=== PATIENT | female | born 1990 | race Caucasian/White ===

== ENCOUNTER 2016-04-24 21:30 | Emergency (ER) | payer MEDICAID, OTHER ==
[~2016-04-24] VITALS: Ht 162.6 cm; Wt 51.0 kg
[~2016-04-24 21:30] MED LIST: DOXY100T PO; TRAM50 PO
[2016-04-24 21:34] VITALS: BP 121/61; PULSE 108; RESP 14; TEMP 98; O2SAT 99
[2016-05-14] MEDS ORDERED: FLUO10CA5 PO (15:29)
[2016-05-14] MEDS ORDERED: SPRI28TA PO (15:29)
[2016-06-09] MEDS ORDERED: ALBU.5I NEB ×2 (10:58→11:29)
[2016-07-21] MEDS ORDERED: CORT1SOL RIGHT EAR (15:53)
== END 2016-04-24 22:40 | disposition left against medical advice (07) ==
LOC: NED 21:30
DX: N94.9 Unspecified condition associated with female genital organs and menstrual cycle (principal)
CPT/HCPCS: 99281

== ENCOUNTER 2016-04-24 22:43 | Emergency (ER) | payer MEDICAID, OTHER ==
[~2016-04-24] VITALS: Ht 162.6 cm; Wt 50.6 kg
[2016-04-24 22:52] VITALS: BP 111/78; PULSE 99; RESP 18; TEMP 99.1; O2SAT 100
--- NOTE | 2016-04-24 23:08 | PD ---
HPI Chief Complaint: Bleeding Time Seen by Provider: 23:06 Travel History International Travel<30 days: No Contact w/Intl Traveler<30days: No Traveled to known affect area: No History of Present Illness HPI This 25-year-old female is complaining of vaginal bleeding. She says that she is started having some heavy bleeding yesterday. She hasn't had a period 2 weeks ago she felt was normal. She had an IUD removed February 26. She does not think she is . The bleeding seemed to slow down earlier today and then tonight she started having heavy bleeding again. She says she felt weak earlier. She had had an IUD in place which she removed herself in February. She states that he was atraumatic [facility] Past Medical History Anxiety: Yes Diminished Hearing: No Immunizations Current: Yes ?: Not LMP: 2 WEEKS AGO, STATES THIS IS NOT HER NORMAL PERIOD : 0 Social History Alcohol Use: Yes (one drink every other month) Tobacco Use: Yes (/ PPD) Substance Use: No Allergies-Medications (Allergen,Severity, Reaction): Coded Allergies: No Known Allergies (Unverified , 04/24/16) Reported Meds & Prescriptions Reported Meds & Active Scripts Active No Active Prescriptions or Reported Medications Review of Systems General / Constitutional: No: Fever, Chills Eyes: No: Diploplia HENT: No: Headaches Cardiovascular: No: Chest Pain or Discomfort, Palpitations Gastrointestinal: No: Nausea Genitourinary: Positive: Vaginal Bleeding Musculoskeletal: No: Myalgias, Arthralgias Physical Exam Narrative GENERAL: Well-developed female SKIN: Warm and dry. HEAD: Atraumatic. Normocephalic. EYES: Pupils equal and round. No scleral icterus. No injection or drainage. ENT: No nasal bleeding or discharge. Mucous membranes pink and moist. NECK: Trachea midline. No JVD. GASTROINTESTINAL: Abdomen soft, non-tender, nondistended. Hepatic and splenic margins not palpable. Pelvic: Cervical os is closed. There is minimal bleeding at this time. Uterus is not palpably enlarged. No adnexal masses MUSCULOSKELETAL: No obvious deformities. No clubbing. No cyanosis. No edema. NEUROLOGICAL: Awake and alert. No obvious cranial nerve deficits. Motor grossly within normal limits. Normal speech. PSYCHIATRIC: Appropriate mood and affect; insight and judgment normal. Data Data Last Documented VS Vital Signs Date Time Temp Pulse Resp B/P Pulse Ox O2 Delivery O2 Flow Rate FiO2 04/24/16 22:52 99.1 99 18 111/78 100 Orders Complete Blood Count With Diff (04/24/16 23:08) Basic Metabolic Panel (Bmp) (04/24/16 23:08) Ed Urine Pregnancytest Poc (04/24/16 23:08) MDM Medical Decision Making Medical Screen Exam Complete: Yes Emergency Medical Condition: Yes Medical Record Reviewed: Yes Differential Diagnosis Differential includes dysfunctional bleeding, , Narrative Course test is negative. Patient is not having heavy bleeding at this time is stable for discharge. She has an upcoming appointment with her top closer Diagnosis Primary Impression: Dysfunctional uterine bleeding Additional Instructions: Follow-up with your top closer Scripts No Active Prescriptions or Reported Meds Disposition: 01 DISCHARGE HOME Condition: Stable Priyank Pereyra MD Apr 24, 2016 23:08
[2016-04-24 23:57] LABS: AUTOMATED NEUTROPHIL # 3.9 TH/MM3 (1.8-7.7); BASOPHIL % 0.6 % (0.0-2.0); EOSINOPHIL # 0.1 TH/MM3 (0-0.4); EOSINOPHIL % 1.4 % (0.0-4.0); HEMATOCRIT 39.2 % (35.0-46.0); HEMO FLAGS DIFF FINAL; LYMPH % 40.8 % (9.0-44.0); LYMPHOCYTE # 3.3 TH/MM3 (1.0-4.8); MEAN CELL VOLUME 87.6 FL (80.0-100.0); MEAN CORPUSCULAR HEMOGLOBIN 29.5 PG (27.0-34.0); MEAN CORPUSCULAR HGB CONC 33.7 % (32.0-36.0); MONO % 8.4 % (0.0-8.0); NEUT % 48.8 % (16.0-70.0); PLATELET COUNT 246 TH/MM3 (150-450); RED BLOOD COUNT 4.47 MIL/MM3 (4.00-5.30); RED CELL DISTRIBUTION WIDTH 12.7 % (11.6-17.2)
[2016-04-25] VITALS: BP 104/64; PULSE 88; RESP 16; O2SAT 99
[2016-04-25 00:03] LABS: POTASSIUM 3.8 MEQ/L (3.5-5.1)
[2016-04-25 00:06] LABS: BICARBONATE 28.6 MEQ/L (21.0-32.0)
[2016-05-14] MEDS ORDERED: FLUO10CA5 PO (15:29)
[2016-05-14] MEDS ORDERED: SPRI28TA PO (15:29)
[2016-06-09] MEDS ORDERED: ALBU.5I NEB ×2 (10:58→11:29)
[2016-07-21] MEDS ORDERED: CORT1SOL RIGHT EAR (15:53)
== END 2016-04-25 00:12 | disposition home or self-care (01) ==
LOC: PHED 22:43
DX: N93.8 Other specified abnormal uterine and vaginal bleeding (principal); F17.210 Nicotine dependence, cigarettes, uncomplicated
CPT/HCPCS: 80048; 84703; 85025; 99284

== ENCOUNTER 2016-06-18 00:47 | Emergency (ER) | payer OTHER ==
[~2016-06-18] VITALS: Ht 162.6 cm; Wt 53.8 kg
[~2016-06-18 00:47] MED LIST changes: +ALBU.5I NEB; -DOXY100T PO; +FLUO10CA5 PO; +SPRI28TA PO; -TRAM50 PO
[2016-06-18 00:55] VITALS: BP 123/91; PULSE 94; RESP 16; TEMP 98.5; O2SAT 97
--- NOTE | 2016-06-18 02:10 | PD ---
HPI Chief Complaint: Oral / Dental Pain or Problem Time Seen by Provider: 01:53 Travel History International Travel<30 days: No Contact w/Intl Traveler<30days: No Traveled to known affect area: No History of Present Illness HPI The patient is a 25-year-old female that complains of dental pain in tooth #3. She states she has been on 2 courses of amoxicillin and it is not working and she came in to get a different antibiotic. She has already seen a dentist and has an appointment for follow-up. She states that her last menstrual period was May 14 and she might be . She denies any fever. She says she can feel some facial swelling on her right face. She had her IUD removed in February and she is not on any contraception currently. [facility] Past Medical History Anxiety: Yes Diminished Hearing: No Reproductive: Yes (PID FROM IUD) Immunizations Current: Yes : 1 Para: 1 Miscarriage: 0 : 0 Social History Alcohol Use: Yes (one drink every other month) Tobacco Use: Yes (1/2 PPD) Substance Use: No Allergies-Medications (Allergen,Severity, Reaction): Coded Allergies: No Known Allergies (Unverified , 06/18/16) Reported Meds & Prescriptions Reported Meds & Active Scripts Active Ibuprofen 600 Mg Tab 600 Mg PO TID Cleocin (Clindamycin HCl) 300 Mg Cap 300 Mg PO Q6H 10 Days Albuterol Neb (Albuterol Sulfate) 2.5 Mg/0.5 Ml Neb 2.5 Mg NEB Q6HR NEB PRN Note: The Albuterol Sulfate Inhalation Solution is concentrated and must be diluted. Read complete instructions carefully before using. Review of Systems Except as stated in HPI: all other systems reviewed are Neg Physical Exam Narrative GENERAL: Well-nourished, well-developed patient in moderate apparent distress with her dental pain. Her vital signs show blood pressure 123/91 but are otherwise normal. SKIN: Warm and dry. HEAD: Normocephalic. EYES: No scleral icterus. No injection or drainage. NECK: Supple, trachea midline. No JVD or lymphadenopathy. CARDIOVASCULAR: Regular rate and rhythm without murmurs, gallops, or rubs. RESPIRATORY: Breath sounds equal bilaterally. No accessory muscle use. GASTROINTESTINAL: Abdomen soft, non-tender, nondistended. MUSCULOSKELETAL: No cyanosis, or edema. BACK: Nontender without obvious deformity. No CVA tenderness. DENTAL: No loose or chipped teeth. No malocclusion. Tooth #3 has a hole in it and there is no associated drainable abscess with this tooth. It is exquisitely tender to the touch however. Data Data Last Documented VS Vital Signs Date Time Temp Pulse Resp B/P Pulse Ox O2 Delivery O2 Flow Rate FiO2 06/18/16 02:49 79 18 110/73 100 Room Air 06/18/16 00:55 98.5 Orders Clindamycin (Cleocin) (06/18/16 02:15) Beta Hcg (Quant/Titer) (06/18/16 02:12) Labs Laboratory Tests Test 06/18/16 02:30 Human Chorionic Gonadotropin, 2 MIU/ML Quant MDM Medical Decision Making Medical Screen Exam Complete: Yes Emergency Medical Condition: Yes Medical Record Reviewed: Yes Interpretation(s) The beta-hCG is 2. Differential Diagnosis Dental infection, drainable abscess, Narrative Course The patient has a dental infection without any drainable abscess. She has been on 2 courses of amoxicillin and wants to change the medicine because she thinks it is not working anymore. Plan: The patient be given Cleocin 600 mg 4 times a day for 10 days and follow- up with her dentist. Diagnosis Primary Impression: Dental infection Additional Instructions: As we discussed, take both Motrin and Tylenol together for the pain. The Cleocin is one tablet 4 times daily for 10 days. Follow-up with your dentist as soon as possible. Med/Other Pt SpecificInfo: Prescription(s) given Scripts Ibuprofen 600 Mg [id number] Mg PO TID #45 TAB Ref 0 Prov:Justin Samano MD 06/18/16 Clindamycin (Cleocin)300 Mg [id number] Mg PO Q6H 10 Days Ref 0 Prov:Justin Samano MD 06/18/16 Disposition: 01 DISCHARGE HOME Condition: Stable Justin Samano MD Jun 18, 2016 02:10
[2016-06-18] MEDS ORDERED: CLINDAMYCIN 150 MG CAP PO ONE (02:15)
[2016-06-18 02:49] VITALS: BP 110/73; PULSE 79; RESP 18; O2SAT 100
[2016-06-18 02:57] LABS: BETA HCG QUANT 2 MIU/ML (0-5)
[2016-06-18] MEDS ORDERED: CLEO300C2 PO (03:23)
[2016-06-18] MEDS ORDERED: IBUP-232 PO (03:25)
[2016-06-18 03:48] VITALS: BP 103/65
[2016-07-21] MEDS ORDERED: CORT1SOL RIGHT EAR (15:53)
== END 2016-06-18 03:57 | disposition home or self-care (01) ==
LOC: PHED 00:47
DX: K04.7 Periapical abscess without sinus (principal); F17.200 Nicotine dependence, unspecified, uncomplicated; Z86.59 Personal history of other mental and behavioral disorders; Z87.42 Personal history of other diseases of the female genital tract
CPT/HCPCS: 84702; 99283

== ENCOUNTER 2016-10-05 02:21 | Emergency (ER) | payer OTHER ==
[~2016-10-05] VITALS: Ht 162.6 cm; Wt 60.0 kg
[~2016-10-05 02:21] MED LIST changes: +CORT1SOL RIGHT EAR; -FLUO10CA5 PO; +IBUP-232 PO; -SPRI28TA PO
[2016-10-05 02:25] VITALS: BP 144/71; PULSE 120; RESP 20; TEMP 98.5; O2SAT 98
--- NOTE | 2016-10-05 03:57 | PD ---
HPI Chief Complaint: Oral / Dental Pain or Problem Time Seen by Provider: 03:51 Travel History International Travel<30 days: No Contact w/Intl Traveler<30days: No Traveled to known affect area: No History of Present Illness HPI The patient is a 26 year old female who presents to the [facility] emergency department with a history of dental pain that recurred on and is gradually worsened with time. It became severe this evening on awoke her from sound sleep.She is postop day 7 after a left mandibular molar extraction. She reports that initially the pain was significant postop, however it gradually improved until Wednesday. She is not any antibiotic. She last took at 2 AM 3 Lortab 5mg, 2- 200mg Ibuprofen and then prior to that at 9 PM she took Tylenol 1 gr and 2- 200mg Ibuprofen. The patient incidentally also reports that over the last 2 weeks she has had difficult urinating. She denies having any dysuria. She reports that she has difficulty starting her stream of urine, and her stream seems weaker. The patient reports that the pain is 10 out of 10 in severity and involves the left jaw, radiating into the left ear and left cheek. She reports that she has a bad taste in her mouth. She denies having any other drainage. The patient denies any recent fevers, cough, congestion, neck pain, chest pain, shortness of breath, abdominal pain, vomiting , diarrhea, or neurologic symptoms. LMP: began 6 days ago. PFSH Past Medical History Narrative Medical The patient's past medical history is significant for dental decay, episodic anxiety. Anxiety: Yes Diminished Hearing: No Reproductive: Yes (PID FROM IUD) Immunizations Current: Yes : 2 Para: 2 Miscarriage: 0 : 0 Past Surgical History Narrative Surgical The patient's past surgical history is significant for a dental extraction. Social History Alcohol Use: No Tobacco Use: Yes (2 cigs per day) Substance Use: No Allergies-Medications (Allergen,Severity, Reaction): Coded Allergies: No Known Allergies (Unverified , 10/05/16) Reported Meds & Prescriptions Reported Meds & Active Scripts Active Ibuprofen 600 Mg Tab 600 Mg PO TID Review of Systems Except as stated in HPI: all other systems reviewed are Neg General / Constitutional: No: Fever Eyes: No: Visual changes HENT: Positive: Dental Difficulties, No: Headaches Cardiovascular: No: Chest Pain or Discomfort Respiratory: No: Shortness of Breath Gastrointestinal: No: Abdominal Pain Genitourinary: No: Dysuria Musculoskeletal: No: Pain Skin: No Rash Neurologic: No: Weakness Psychiatric: No: Depression Endocrine: No: Polydipsia Hematologic/Lymphatic: No: Easy Bruising Physical Exam Narrative General: The patient is a well-developed well-nourished female, uncomfortable appearing on arrival, tearful. Head and Neck exam: Head is normocephalic atraumatic. No facial swelling is noted. Eyes: EOMI, pupils are equal round and reactive to light. Nose: Midline septum with pink mucous membranes Mouth: Dentition is remarkable for an area of recent dental extraction involving the left mandibular first molar. There appears to be some drainage in the socket. This appears to be yellow in color. There is mild erythema surrounding the extraction site in the gumline. There is no victor hugo abscess formation. Moist mucus membranes. Posterior oropharynx is not erythematous. No tonsillar hypertrophy. Uvula midline. Airway patent. Neck: No palpable lymphadenopathy. No nuchal rigidity. No thyromegaly. No spinous process tenderness to palpation, no step-off or crepitus, no erythema or ecchymosis. Cardiovascular: Regular rate and rhythm without murmurs, gallops, or rubs. Lungs: Clear to auscultation bilaterally. No wheezes, rhonchi, or rales. Abdomen: Soft, without tenderness to palpation in all 4 quadrants of the abdomen. No guarding, rebound, or rigidity. Normal bowel sounds are audible. No tenderness on palpation of McBurney's point Extremities: No clubbing, cyanosis, or edema. 2+ pulses in all 4 extremities. No calf tenderness on palpation. Back: No costovertebral angle tenderness to palpation. Neurologic Exam: Grossly nonfocal. Skin Exam: No rash noted. Intact skin that is warm and dry. Data Data Last Documented VS Vital Signs Date Time Temp Pulse Resp B/P Pulse Ox O2 Delivery O2 Flow Rate FiO2 10/05/16 02:25 98.5 120 20 144/71 98 Room Air Orders Complete Blood Count With Diff (10/05/16 03:59) Basic Metabolic Panel (Bmp) (10/05/16 03:59) Urinalysis - C+S If Indicated (10/05/16 03:59) Iv Access Insert/Monitor (10/05/16 03:59) Ecg Monitoring (10/05/16 03:59) Oximetry (10/05/16 03:59) Ed Urine Pregnancytest Poc (10/05/16 03:59) Sodium Chlor 0.9% 1000 Ml Inj (Ns 1000 M (10/05/16 04:00) Ketorolac Inj (Toradol Inj) (10/05/16 04:00) Amoxicil-Clavulanate (Augmentin) (10/05/16 04:15) Morphine Inj (Morphine Inj) (10/05/16 05:15) Ondansetron Inj (Zofran Inj) (10/05/16 05:15) Labs Laboratory Tests Test 10/05/16 04:30 White Blood Count 7.0 TH/MM3 Red Blood Count 4.68 MIL/MM3 Hemoglobin 14.0 GM/DL Hematocrit 40.5 % Mean Corpuscular Volume 86.6 FL Mean Corpuscular Hemoglobin 30.0 PG Mean Corpuscular Hemoglobin 34.7 % Concent Red Cell Distribution Width 13.0 % Platelet Count 220 TH/MM3 Mean Platelet Volume 9.7 FL Neutrophils (%) (Auto) 53.6 % Lymphocytes (%) (Auto) 36.4 % Monocytes (%) (Auto) 8.5 % Eosinophils (%) (Auto) 1.0 % Basophils (%) (Auto) 0.5 % Neutrophils # (Auto) 3.8 TH/MM3 Lymphocytes # (Auto) 2.6 TH/MM3 Monocytes # (Auto) 0.6 TH/MM3 Eosinophils # (Auto) 0.1 TH/MM3 Basophils # (Auto) 0.0 TH/MM3 CBC Comment DIFF FINAL Differential Comment Sodium Level 139 MEQ/L Potassium Level 4.0 MEQ/L Chloride Level 105 MEQ/L Carbon Dioxide Level 27.4 MEQ/L Anion Gap 7 MEQ/L Blood Urea Nitrogen 11 MG/DL Creatinine 0.88 MG/DL Estimat Glomerular Filtration 78 ML/MIN Rate Random Glucose 76 MG/DL Calcium Level 8.8 MG/DL [facility] Medical Decision Making Medical Screen Exam Complete: Yes Emergency Medical Condition: Yes Medical Record Reviewed: Yes Differential Diagnosis Dry socket, versus gingival infection post extraction Narrative Course During the course of the patients emergency department visit, the patients history, examination, and differential diagnosis were reviewed with the patient. The patient had IV access obtained and blood work sent for analysis. The patient's was on a pvc monitor with oximetry and blood pressure monitoring. Given the patient's reported urinary symptoms, urinalysis was sent , basic metabolic profile to evaluate the patient's kidney function was ordered. A CBC was ordered to evaluate for possible underlying significant infection. The patient was initially provided normal saline 1 L IV fluid bolus, Toradol 15 mg IV for pain. The patient continued to have pain and was given morphine 4 mg IV, Zofran 4 mg IV. The patient was given Augmentin 875 mg by mouth 1 for suspected infection. The patients laboratory studies were reviewed and remarkable for a white count of 7, hemoglobin 14, platelets 220 with 8.5 monocytes, BNP is unremarkable. BUN is noted to be 11, creatinine 0.88 The patient has a follow-up appointment with her dentist for 8 AM this morning. The patient was instructed to continue on her current pain medication regimen. The patient will be continued on Augmentin. The patient was given a prescription at discharge. The patient is resting comfortably and feels better, is alert and in no distress. The patients results and examination findings were discussed with the patient. The repeat examination is unremarkable and benign. The history, exam, diagnostic testing, and current condition do not suggest any significant pathology to warrant further testing, continued ED treatment, admission, or surgical evaluation at this point. The vital signs have been stable. The patient does not have uncontrollable pain, intractable vomiting, or other significant symptoms. The patient's condition is stable and appropriate for discharge. The patient will pursue further outpatient evaluation with a primary care physician or other designated or consulting physician as indicated in the discharge instructions. The patient expressed understanding and was agreeable with this plan. Diagnosis Primary Impression: Dental infection Referrals: Dentist 1 day Patient Instructions: General Instructions Med/Other Pt SpecificInfo: Prescription(s) given Scripts Amoxicillin-Clavulanate (Augmentin)875-125 Mg Tab1 Tab PO BID #19 TAB Ref 0 Prov:Emilee Bird MD 10/05/16 Disposition: 01 DISCHARGE HOME Condition: Stable Emilee Bird MD Oct 05, 2016 03:57
[2016-10-05] MEDS ORDERED: SODIUM CHLOR 0.9% 1000 ML INJ 1,000 ML IV ONE (04:00)
[2016-10-05] MEDS ORDERED: KETOROLAC TROMETHAMINE 30 MG/ML (IVP) VIAL IV PUSH ONE (04:00)
[2016-10-05] MEDS ORDERED: AMOXICILLIN/CLAVULANATE K 875 MG TAB PO ONE (04:15)
[2016-10-05 04:48] LABS: AUTOMATED NEUTROPHIL # 3.8 TH/MM3 (1.8-7.7); BASOPHIL % 0.5 % (0.0-2.0); EOSINOPHIL # 0.1 TH/MM3 (0-0.4); HEMATOCRIT 40.5 % (35.0-46.0); HEMO FLAGS DIFF FINAL; LYMPH % 36.4 % (9.0-44.0); LYMPHOCYTE # 2.6 TH/MM3 (1.0-4.8); MEAN CELL VOLUME 86.6 FL (80.0-100.0); MEAN CORPUSCULAR HGB CONC 34.7 % (32.0-36.0); MONO % 8.5 % (0.0-8.0); NEUT % 53.6 % (16.0-70.0); PLATELET COUNT 220 TH/MM3 (150-450); RED BLOOD COUNT 4.68 MIL/MM3 (4.00-5.30)
[2016-10-05 05:04] LABS: BICARBONATE 27.4 MEQ/L (21.0-32.0)
[2016-10-05] MEDS ORDERED: AUGM875T3 PO (05:13)
[2016-10-05] MEDS ORDERED: ONDANSETRON HCL 4 MG/2 ML VIAL IV PUSH ONE (05:15)
[2016-10-05] MEDS ORDERED: MORPHINE SULFATE 4 MG/ML INJ IV PUSH ONE (05:15)
[2016-10-05 05:36] VITALS: RESP 20
[2016-10-05 06:40] LABS: BLOOD, URINE NEG (NEG); COMMENT (UR) CULT NOT INDICATED; CULTURE IF INDICATED CULT NOT INDICATED; GLUCOSE,URINE NEG (NEG); KETONE, URINE NEG (NEG); MUCUS URINE FEW /lpf (OCC); NITRITE,URINE NEG (NEG); PH, URINE 5.5 (5.0-8.5); SQUAMOUS EPITHELIAL CELL URINE 8 /hpf (0-5); URINE COLOR LIGHT-YELLOW (YELLW/STRAW)
== END 2016-10-05 06:57 | disposition home or self-care (01) ==
LOC: NEPC 02:21
DX: K04.7 Periapical abscess without sinus (principal); F41.9 Anxiety disorder, unspecified; F17.210 Nicotine dependence, cigarettes, uncomplicated
CPT/HCPCS: 80048; 81001; 84703; 85025; 96361; 96374; 96375; 99284; J1885; J2270; J2405; J7030

== ENCOUNTER 2016-12-18 21:17 | Emergency (ER) | payer OTHER ==
[~2016-12-18] VITALS: Ht 162.6 cm; Wt 53.0 kg
[~2016-12-18 21:17] MED LIST changes: -ALBU.5I NEB; +AUGM875T3 PO; -CORT1SOL RIGHT EAR
[2016-12-18 21:18] VITALS: BP 109/65; PULSE 93; RESP 15; TEMP 99; O2SAT 99
--- NOTE | 2016-12-18 21:38 | PD ---
HPI Chief Complaint: ENT Complaint Time Seen by Provider: 21:34 Travel History International Travel<30 days: No Contact w/Intl Traveler<30days: No Traveled to known affect area: No History of Present Illness HPI 26 show female presents to emergency department for evaluation of a sore throat. Patient first noticed this approximately 3 days ago but noticed it gets significantly worse yesterday. She states today it has gotten to where she is unable swallow without significant difficulty and pain. She feels as though her voice has changed and she feels that her throat is swollen. She has had a low-grade temperature and has taken Tylenol approximately an hour ago. She denies any nausea vomiting. No cough or chest congestion. She has no other symptoms to report at this time. [facility] Past Medical History Anxiety: Yes Diminished Hearing: No Reproductive: Yes (PID FROM IUD) Immunizations Current: Yes Tetanus Vaccination: < 5 Years Influenza Vaccination: No ?: Not LMP: 11/23/16 : 2 Para: 2 Miscarriage: 0 : 0 Social History Alcohol Use: No Tobacco Use: Yes (2 cigs per day) Substance Use: No Allergies-Medications (Allergen,Severity, Reaction): Coded Allergies: No Known Allergies (Unverified , 12/18/16) Reported Meds & Prescriptions Reported Meds & Active Scripts Active Prednisone 50 Mg Tab 50 Mg PO DAILY 5 Days Augmentin (Amoxicillin-Clavulanate) 875-125 Mg Tab 1 Tab PO BID 10 Days Review of Systems Except as stated in HPI: all other systems reviewed are Neg Physical Exam Narrative GENERAL: Well-nourished female patient, ambulatory no acute distress SKIN: Focused skin assessment warm/dry. HEAD: Atraumatic. Normocephalic. EYES: Pupils equal and round. No scleral icterus. No injection or drainage. ENT: No nasal bleeding or discharge. Mucous membranes pink and moist. Pharynx with significant erythema and edema that extends into the posterior palate. Uvular edema without deviation. No obvious abscess. NECK: Trachea midline. No JVD. Anterior cervical lymphadenopathy. CARDIOVASCULAR: Regular rate and rhythm. No murmur appreciated. RESPIRATORY: No accessory muscle use. Clear to auscultation. Breath sounds equal bilaterally. GASTROINTESTINAL: Abdomen soft, non-tender, nondistended. Hepatic and splenic margins not palpable. MUSCULOSKELETAL: No obvious deformities. No clubbing. No cyanosis. No edema. NEUROLOGICAL: Awake and alert. No obvious cranial nerve deficits. Motor grossly within normal limits. Normal speech. PSYCHIATRIC: Appropriate mood and affect; insight and judgment normal. Data Data Last Documented VS Vital Signs Date Time Temp Pulse Resp B/P (MAP) Pulse Ox O2 Delivery O2 Flow Rate FiO2 12/18/16 22:28 99.9 92 14 118/63 (81) 98 12/18/16 21:18 Room Air Orders Orders Group A Rapid Strep Screen (12/18/16 21:41) Dexamethasone Inj (Decadron Inj) (12/18/16 21:45) Amoxicil-Clavulanate (Augmentin) (12/18/16 21:45) Strep Culture (Group A) (12/18/16 21:40) MDM Medical Decision Making Medical Screen Exam Complete: Yes Emergency Medical Condition: Yes Medical Record Reviewed: Yes Differential Diagnosis Pharyngitis versus tonsillitis versus peritonsillar abscess versus cellulitis Narrative Course 26 year old female presents to emergency department for evaluation of sore throat. Patient is a significant erythematous and edematous pharynx with uvular edema but no deviation. Strep screen is negative, however with patient' s significant erythematous and edematous pharynx suspicious for cellulitis possible abscess, I'll start him on oral antibiotics and steroid. She agrees follow-up with primary care provider return immediately with any acute worsening symptoms. Diagnosis Primary Impression: Peritonsillar cellulitis Referrals: Primary Care Physician Patient Instructions: General Instructions, Peritonsillar Abscess (ED) Additional Instructions: Warm salt water gargles 2-3 times a day may help to alleviate your symptoms Tylenol and/or ibuprofen as directed on the package as needed for pain and/or fever Avoid abrasive and acidic foods Follow-up with a primary care provider Return immediately with any acute worsening of symptoms Med/Other Pt SpecificInfo: Prescription(s) given Scripts Prednisone (Prednisone) 50 Mg Tab 50 MG PO DAILY for 5 Days, TAB 0 Refills Prov: Gabriella Asencio 12/18/16 Amoxicillin-Clavulanate (Augmentin) 875-125 Mg Tab 1 TAB PO BID for Infection for 10 Days, #10 TAB 0 Refills Prov: Gabriella Asencio 12/18/16 Disposition: 01 DISCHARGE HOME Condition: Stable Gabriella Asencio Dec 18, 2016 21:38
[2016-12-18] MEDS ORDERED: AMOXICILLIN/CLAVULANATE K 875 MG TAB PO ONE (21:45)
[2016-12-18] MEDS ORDERED: DEXAMETHASONE SOD PHOS 20 MG/5 ML VIAL IM ONE (21:45)
[2016-12-18] MEDS ORDERED: PRED50 PO (22:23)
[2016-12-18] MEDS ORDERED: AUGM875T3 PO (22:23)
[2016-12-18 22:28] VITALS: BP 118/63; TEMP 99.9
== END 2016-12-18 22:29 | disposition home or self-care (01) ==
LOC: NEPD 21:17
DX: J36 Peritonsillar abscess (principal); B95.0 Streptococcus, group A, as the cause of diseases classified elsewhere; F17.210 Nicotine dependence, cigarettes, uncomplicated
CPT/HCPCS: 87081; 87880; 96372; 99284; J1100

== ENCOUNTER 2017-04-23 21:02 | Emergency (ER) | payer OTHER ==
[~2017-04-23] VITALS: Ht 162.6 cm; Wt 53.6 kg
[~2017-04-23 21:02] MED LIST changes: -IBUP-232 PO; +PRED50 PO
[2017-04-23 21:04] VITALS: BP 123/78; PULSE 143; RESP 16; TEMP 98.7; O2SAT 99
[2017-04-24] MEDS ORDERED: SODIUM CHLORIDE 0.9% FLUSH 10 ML FLUSH IVF PRN (00:30)
[2017-04-24 00:53] VITALS: BP 115/75; PULSE 97; RESP 23; O2SAT 99
--- NOTE | 2017-04-24 01:11 | RADRPT ---
EXAM DATE/TIME: 04/24/2017 00:33 [place] COMPARISON: CHEST PA & LAT, June 25, 2011, 15:30. INDICATIONS : Chest pain that woke patient. MEDICAL HISTORY : None. SURGICAL HISTORY : None. ENCOUNTER: Initial ACUITY: 1 day PAIN SCORE: 8/10 LOCATION: Bilateral chest FINDINGS: Nonspecific calcification projected over the left upper lung. As well as in the soft tissues above th e left clavicle. Suspect this is external to the thoracic cavity. A similar finding is noted overlyin g the right scapula. Otherwise, the lung correa are grossly clear with no acute pulmonary infiltrates . Heart size is within normal limits. There are no pleural effusions or pulmonary edema. The rest of bony structures are grossly unremarkable. No other significant changes are seen compared to the prior study. CONCLUSION: 1. No definite acute intrathoracic disease. 2. 3. Nonspecific calcified densities project over the right scapula and left upper hemithorax. This is most likely external to the thoracic cavity. This can be further evaluated on a nonemergent outpatien t basis with a 2 views of the chest. Solomon Sotelo MD on April 24, 2017 at 1: 4. 05 Board Certified Radiologist. This report was verified electronically.
[2017-04-24 01:17] LABS: AUTOMATED NEUTROPHIL # 3.4 TH/MM3 (1.8-7.7); BASOPHIL % 0.6 % (0.0-2.0); EOSINOPHIL # 0.1 TH/MM3 (0-0.4); HEMATOCRIT 38.1 % (35.0-46.0); HEMOGLOBIN 13.2 GM/DL (11.6-15.3); LYMPH % 39.9 % (9.0-44.0); LYMPHOCYTE # 2.7 TH/MM3 (1.0-4.8); MEAN CELL VOLUME 85.8 FL (80.0-100.0); MEAN CORPUSCULAR HEMOGLOBIN 29.6 PG (27.0-34.0); MEAN CORPUSCULAR HGB CONC 34.5 % (32.0-36.0); MEAN PLATELET VOLUME 8.9 FL (7.0-11.0); MONO % 8.6 % (0.0-8.0); MONOCYTE # 0.6 TH/MM3 (0-0.9); NEUT % 49.9 % (16.0-70.0); PLATELET COUNT 212 TH/MM3 (150-450); RED BLOOD COUNT 4.44 MIL/MM3 (4.00-5.30); RED CELL DISTRIBUTION WIDTH 13.5 % (11.6-17.2); WHITE BLOOD COUNT 6.8 TH/MM3 (4.0-11.0)
[2017-04-24 01:53] LABS: ALBUMIN 3.7 GM/DL (3.4-5.0); ALT (GPT) 41 U/L (10-53); AST (GOT) 24 U/L (15-37); BICARBONATE 25.9 MEQ/L (21.0-32.0); BLOOD UREA NITROGEN 14 MG/DL (7-18); CALCIUM 8.4 MG/DL (8.5-10.1); CHLORIDE 108 MEQ/L (98-107); CREATININE 0.73 MG/DL (0.50-1.00); GLOMERULAR FILTRATION RATE 96 ML/MIN (>89); GLUCOSE,RANDOM 89 MG/DL (74-106); MAGNESIUM 2.1 MG/DL (1.5-2.5); SODIUM (NA) 141 MEQ/L (136-145)
[2017-04-24 01:55] LABS: INTERNATIONAL NORMALIZED RATIO 1.1 RATIO; PROTHROMBIN TIME - PATIENT 10.7 SEC (9.8-11.6)
[2017-04-24 01:56] LABS: ALKALINE PHOSPHATASE 57 U/L (45-117); TOTAL BILIRUBIN ADULT 0.3 MG/DL (0.2-1.0); TOTAL PROTEIN 7.1 GM/DL (6.4-8.2); TROPONIN I LESS THAN 0.02 NG/ML (0.02-0.05)
[2017-04-24 02:01] LABS: D-DIMER 0.2 MG/L FEU (0.00-0.50)
[2017-04-24] MEDS ORDERED: KETOROLAC TROMETHAMINE 30 MG/ML (IVP) VIAL IV PUSH ONE (02:30)
--- NOTE | 2017-04-24 04:34 | PD ---
HPI . Chest pain Chief Complaint: Chest Pain Time Seen by Provider: 00:17 Travel History International Travel<30 days: No Contact w/Intl Traveler<30days: No Traveled to known affect area: No History of Present Illness HPI 26-year-old female complains of having substernal anterior precordial chest pain sharp and nonradiating, worse with deep breath and leaning forward, occurring over the past week to 10 days. Patient notes a concomitant URI earlier in the week. Patient currently notes no shortness of breath, no recent sedentary. Her confined travel, no leg pain or swelling, no cough, fever chills sweats. [facility] Past Medical History Narrative Medical Past medical history reviewed Medical History: Denies Significant Hx Anxiety: Yes Diminished Hearing: No Reproductive: Yes (PID FROM IUD) Immunizations Current: Yes Tetanus Vaccination: Unknown ?: Not LMP: : 2 Para: 2 Miscarriage: 0 : 0 Past Surgical History Surgical History: No Previous Surgery Social History Alcohol Use: No Tobacco Use: Yes (2 cigs per day) Substance Use: No Allergies-Medications (Allergen,Severity, Reaction): Coded Allergies: No Known Allergies (Unverified , 12/18/16) Reported Meds & Prescriptions Reported Meds & Active Scripts Active Prednisone 50 Mg Tab 50 Mg PO DAILY 5 Days Augmentin (Amoxicillin-Clavulanate) 875-125 Mg Tab 1 Tab PO BID 10 Days Narrative Medication Allergies and medications reviewed Review of Systems Except as stated in HPI: all other systems reviewed are Neg General / Constitutional: No: Fever Eyes: No: Visual changes HENT: No: Headaches Cardiovascular: Positive: Chest Pain or Discomfort, No: Palpitations, Irregular Rhythm, Tachycardia, Syncope, Dyspnea on exertion, Edema Respiratory: Positive: Pleuritic Pain, No: Cough, Shortness of Breath, Orthopnea, Hemoptysis, Stridor, Night Sweats Gastrointestinal: No: Abdominal Pain Genitourinary: No: Dysuria Musculoskeletal: No: Pain Skin: No Rash Neurologic: No: Weakness Psychiatric: No: Depression Endocrine: No: Polydipsia Hematologic/Lymphatic: No: Easy Bruising Physical Exam Narrative GENERAL: Awake alert oriented 3 no acute distress SKIN: Warm and dry. HEAD: Atraumatic. Normocephalic. EYES: Pupils equal and round. No scleral icterus. No injection or drainage. ENT: No nasal bleeding or discharge. Mucous membranes pink and moist. NECK: Trachea midline. No JVD. CARDIOVASCULAR: Regular rate and rhythm. RESPIRATORY: No accessory muscle use. Clear to auscultation. Breath sounds equal bilaterally. GASTROINTESTINAL: Abdomen soft, non-tender, nondistended. Hepatic and splenic margins not palpable. MUSCULOSKELETAL: Extremities without clubbing, cyanosis, or edema. No obvious deformities. NEUROLOGICAL: Awake and alert. No obvious cranial nerve deficits. Motor grossly within normal limits. Five out of 5 muscle strength in the arms and legs. Normal speech. PSYCHIATRIC: Appropriate mood and affect; insight and judgment normal. Data Data Last Documented VS Vital Signs Date Time Temp Pulse Resp B/P (MAP) Pulse Ox O2 Delivery O2 Flow Rate FiO2 04/24/17 00:56 98 Room Air 04/24/17 00:53 97 23 115/75 (88) 04/23/17 21:04 98.7 Orders Orders Electrocardiogram (04/23/17 ) Electrocardiogram (04/24/17 00:19) Ckmb (Isoenzyme) Profile (04/24/17 00:19) Complete Blood Count With Diff (04/24/17 00:19) Comprehensive Metabolic Panel (04/24/17 00:19) D-Dimer (04/24/17 00:19) Magnesium (Mg) (04/24/17 00:19) Prothrombin Time / Inr (Pt) (04/24/17 00:19) Act Partial Throm Time (Ptt) (04/24/17 00:19) Troponin I (04/24/17 00:19) Chest, Single Ap (04/24/17 00:19) Ecg Monitoring (04/24/17 00:19) Bilateral Bp Monitoring (04/24/17 00:19) Iv Access Insert/Monitor (04/24/17 00:19) Oximetry (04/24/17 00:19) Oxygen Administration (04/24/17 00:19) Sodium Chloride 0.9% Flush (Ns Flush) (04/24/17 00:30) Beta Hcg (Quant/Titer) (04/24/17 00:19) Drug Screen, Random Urine (04/24/17 00:19) Ketorolac Inj (Toradol Inj) (04/24/17 02:30) Labs Laboratory Tests Test 04/24/17 01:00 White Blood Count 6.8 TH/MM3 Red Blood Count 4.44 MIL/MM3 Hemoglobin 13.2 GM/DL Hematocrit 38.1 % Mean Corpuscular Volume 85.8 FL Mean Corpuscular Hemoglobin 29.6 PG Mean Corpuscular Hemoglobin Concent 34.5 % Red Cell Distribution Width 13.5 % Platelet Count 212 TH/MM3 Mean Platelet Volume 8.9 FL Neutrophils (%) (Auto) 49.9 % Lymphocytes (%) (Auto) 39.9 % Monocytes (%) (Auto) 8.6 % Eosinophils (%) (Auto) 1.0 % Basophils (%) (Auto) 0.6 % Neutrophils # (Auto) 3.4 TH/MM3 Lymphocytes # (Auto) 2.7 TH/MM3 Monocytes # (Auto) 0.6 TH/MM3 Eosinophils # (Auto) 0.1 TH/MM3 Basophils # (Auto) 0.0 TH/MM3 CBC Comment DIFF FINAL Differential Comment Prothrombin Time 10.7 SEC Prothromb Time International Ratio 1.1 RATIO Activated Partial Thromboplast Time 25.2 SEC D-Dimer Quantitative (PE/DVT) 0.20 MG/L FEU Blood Urea Nitrogen 14 MG/DL Creatinine 0.73 MG/DL Random Glucose 89 MG/DL Total Protein 7.1 GM/DL Albumin 3.7 GM/DL Calcium Level 8.4 MG/DL Magnesium Level 2.1 MG/DL Alkaline Phosphatase 57 U/L Aspartate Amino Transf (AST/SGOT) 24 U/L Alanine Aminotransferase (ALT/SGPT) 41 U/L Total Bilirubin 0.3 MG/DL Sodium Level 141 MEQ/L Potassium Level 4.1 MEQ/L Chloride Level 108 MEQ/L Carbon Dioxide Level 25.9 MEQ/L Anion Gap 7 MEQ/L Estimat Glomerular Filtration Rate 96 ML/MIN Total Creatine Kinase 94 U/L Troponin I LESS THAN 0.02 NG/ML Human Chorionic Gonadotropin, Quant LESS THAN 1 MIU/ML MDM Medical Decision Making Medical Screen Exam Complete: Yes Emergency Medical Condition: Yes Medical Record Reviewed: Yes Differential Diagnosis Pleurisy, pneumothorax, or embolus, bronchitis, pneumonia Narrative Course Chest rate and x-ray no acute infiltrates no pneumothorax Laboratory examinations reviewed, no significant maladies. D-dimer negative Patient improved with Toradol IV Diagnosis Primary Impression: Pleurisy Patient Instructions: General Instructions, Pleurisy (ED) Additional Instructions: Ibuprofen 4 mg every 6 hours for pain. Medrol Dosepak as prescribed. Follow- up with your doctor. Return for worsening Scripts Methylprednisolone Dosepak (Medrol Dosepak) 4 Mg Dspk 4 MG PO DIRECTED, #1 DSPK 0 Refills Per Pharmacist direction Prov: Rickey Cabezas MD 04/24/17 Ibuprofen (Ibuprofen) 400 Mg Tab 400 MG PO Q8H Y for PAIN SCALE 1 TO 10, #15 TAB 0 Refills Prov: Rickey Cabezas MD 04/24/17 Disposition: 01 DISCHARGE HOME Condition: Stable Rickey Cabezas MD Apr 24, 2017 04:34
[2017-04-24] MEDS ORDERED: IBUP1TAB5 PO (04:51)
[2017-04-24] MEDS ORDERED: MEDR4PAK PO (04:51)
--- NOTE | 2017-04-24 15:00 | EKG ---
Date Performed: 04/23/2017 Time Performed: 21:36:48 PTAGE: 26 years EKG: SINUS TACHYCARDIA POSSIBLE LEFT ATRIAL ENLARGEMENT ABNORMAL RHYTHM ECG PREVIOUS TRACING : 04/20/2013 22.21 Since previous tracing, no significant change noted DOCTOR: Selwyn Bird Interpretating Date/Time 04/24/2017 14:58:59
== END 2017-04-24 05:32 | disposition home or self-care (01) ==
LOC: NEPE 21:02
DX: R09.1 Pleurisy (principal); F17.210 Nicotine dependence, cigarettes, uncomplicated; R00.0 Tachycardia, unspecified
CPT/HCPCS: 71045; 80053; 82550; 83735; 84484; 84702; 85025; 85379; 85610; 85730; 93005; 96374; 99285; J1885